=== PATIENT | female | born 1995 | race African-American/Black ===

== ENCOUNTER 2017-03-09 09:09 | Emergency (ER) | payer SELFPAY ==
[~2017-03-09] VITALS: Ht 170.2 cm; Wt 80.0 kg
[2017-03-09 09:12] VITALS: BP 112/81
[2017-03-09] MEDS ORDERED: KEPP500 PO (09:14)
[2017-03-09] MEDS ORDERED: KETOROLAC 60MG/2ML VIAL IM ONE (10:45)
== END 2017-03-09 13:45 | disposition home or self-care (01) ==
LOC: ER 09:18
DX: S00.81XA Abrasion of other part of head, initial encounter (principal); S43.401A Unspecified sprain of right shoulder joint, initial encounter; S80.211A Abrasion, right knee, initial encounter; S50.311A Abrasion of right elbow, initial encounter; G40.909 Epilepsy, unspecified, not intractable, without status epilepticus; J45.909 Unspecified asthma, uncomplicated; V87.8XXA Person injured in other specified noncollision transport accidents involving motor vehicle (traffic), initial encounter; Y93.89 Activity, other specified; Y92.488 Other paved roadways as the place of occurrence of the external cause
CPT/HCPCS: 73030; 81025; 96372; 99284; J1885